=== PATIENT | male | born 1985 | race Caucasian/White ===

== ENCOUNTER 2020-03-20 13:19 | Emergency (ER) | payer OTHER ==
--- NOTE | 2020-03-20 13:57 | EDM.PDOC ---
ED HPI GENERAL MEDICAL PROBLEM - General Chief Complaint: Upper Extremity Injury/Pain Stated Complaint: RIGHT SHOULDER INJURY Time Seen by Provider: 03/20/20 13:20 Source of Information: Reports: Patient History Limitations: Reports: No Limitations - History of Present Illness INITIAL COMMENTS - FREE TEXT/NARRATIVE: Patient is a 35-year-old male who presents today for right shoulder pain. Patient states that he was practicing [email or web address] when his opponent him caused him to land on his right shoulder with his opponent weight on top of it as well. Patient states he has pain with range of motion of the right shoulder but can laterally lift the arm up with assistance. Patient was seen in urgent care last night and was told that they did not see any concerning findings at that time. Patient denied any other injuries fevers chills numbness to the arm or other complaints. right arm Pain Score (Numeric/FACES): 5 - Related Data Allergies Allergy/AdvReac Type Severity Reaction Status Date / Time No Known Allergies Allergy Verified 03/20/20 13:49 Home Meds: Home Meds . [No Known Home Meds] 03/20/20 [History] Review of Systems - Review of Systems Review Of Systems: See Below Constitutional: Reports: No Symptoms Eyes: Reports: No Symptoms Ears: Reports: No Symptoms Nose: Reports: No Symptoms Mouth/Throat: Reports: No Symptoms Respiratory: Reports: No Symptoms Cardiovascular: Reports: No Symptoms GI/Abdominal: Reports: No Symptoms Genitourinary: Reports: No Symptoms Musculoskeletal: Reports: Shoulder Pain Skin: Reports: No Symptoms Neurological: Reports: No Symptoms Psychiatric: Reports: No Symptoms ED EXAM, GENERAL - Physical Exam Exam: See Below Exam Limited By: No Limitations General Appearance: Alert, WD/WN Head: Atraumatic Peripheral Pulses: 2+: Radial (L), Radial (R) Extremities: Normal Inspection, Joint Swelling, Arm Pain. No: Normal Range of Motion Neurological: Alert, Oriented, Normal Cognition, Normal Gait Course - Vital Signs Last Recorded V/S: Last Vital Signs Temp 96.5 F L 03/20/20 13:45 Pulse 82 03/20/20 13:45 Resp 16 03/20/20 13:45 BP 170/86 H 03/20/20 13:45 Pulse Ox 97 03/20/20 13:45 - Orders/Labs/Meds Meds: Medications Discontinued Medications Generic Name Dose Route Start Last Admin Trade Name Arin PRN Reason Stop Dose Admin Ibuprofen 800 mg 03/20/20 14:00 03/20/20 14:06 Motrin PO 03/20/20 14:01 800 mg ONETIME ONE Administration - Re-Assessments/Exams Free Text/Narrative Re-Assessment/Exam: 03/20/20 15:07 Patient x-ray showed no fractures or dislocations. Patient of tendon area. Plan is to have a patient ice and take Motrin Tylenol for pain and have him follow-up orthopedics for possible further images this week. Departure - Departure Time of Disposition: 15:07 Disposition: Home, Self-Care 01 Condition: Good Clinical Impression: Sprain of shoulder and upper arm, Sprain of shoulder - Discharge Information *PRESCRIPTION DRUG MONITORING PROGRAM REVIEWED*: Not Applicable *COPY OF PRESCRIPTION DRUG MONITORING REPORT IN PATIENT BHAVANI: Not Applicable Instructions: Shoulder Sprain Referrals: PCP,Not In Area [Primary Care Provider] - Forms: ED Department Discharge Additional Instructions: The following information is given to patients seen in the emergency department who are being discharged to home. This information is to outline your options for follow-up care. We provide all patients seen in our emergency department with a follow-up referral. The need for follow-up, as well as the timing and circumstances, are variable depending upon the specifics of your emergency department visit. If you don't have a primary care physician on staff, we will provide you with a referral. We always advise you to contact your personal physician following an emergency department visit to inform them of the circumstance of the visit and for follow-up with them and/or the need for any referrals to a consulting specialist. The emergency department will also refer you to a specialist when appropriate. This referral assures that you have the opportunity for follow-up care with a specialist. All of these measure are taken in an effort to provide you with optimal care, which includes your follow-up. Under all circumstances we always encourage you to contact your private physician who remains a resource for coordinating your care. When calling for follow-up care, please make the office aware that this follow-up is from your recent emergency room visit. If for any reason you are refused follow-up, please contact the [facility] Emergency Department at and asked to speak to the emergency department charge nurse. Please follow up with your primary care physician. If you do not have a primary care physician, see below: [facility] [address], [address] [place] [address] Follow-up with orthopedic doctor we will send information to them and also the number above where you can call and also where the location of the appointment will be. If you have any numbness to the arm increased pain please return to the ER. Sepsis Event Note (ED) - Evaluation Sepsis Screening Result: No Definite Risk - Focused Exam Vital Signs: Vital Signs Temp Pulse Resp BP Pulse Ox 03/20/20 13:45 96.5 F L 82 16 170/86 H 97 - Assessment/Plan Assessment:: Patient is a 35-year-old male presents today for right shoulder pain. Patient landed on his right shoulder. Patient has limited range of motion and tenderness to touch. Will obtain x-ray pain control and reassess.
[2020-03-20] MEDS ORDERED: Ibuprofen 800 MG Tab PO ONE (14:00)
--- NOTE | 2020-03-20 14:46 | CR ---
Indication: Injury and pain Technique: Right shoulder 3 views Comparison: None Findings: Bones: Alignment is normal. No fractures or bone lesions. Joint spaces: Unremarkable. Soft tissues: Unremarkable. Impression: No sign of acute injury. Dictated by Dwain Park MD @ Mar 20 2020 2:42PM Signed by Dr. Dwain Park @ Mar 20 2020 2:45PM
--- NOTE | 2020-03-20 14:46 | CR ---
Indication: Injury and pain Technique: Right clavicle 2 views Comparison: None Findings: Bones: Alignment is normal. No fractures or bone lesions. Joint spaces: Unremarkable. Soft tissues: Unremarkable. Impression: No sign of acute injury. Dictated by Dwain Park MD @ Mar 20 2020 2:42PM Signed by Dr. Dwain Park @ Mar 20 2020 2:43PM
== END 2020-03-20 15:27 | disposition home or self-care (01) ==
LOC: MW.ED 13:19
DX: S43.401A Unspecified sprain of right shoulder joint, initial encounter (principal); W50.0XXA Accidental hit or strike by another person, initial encounter; Y92.89 Other specified places as the place of occurrence of the external cause
CPT/HCPCS: 73000; 73030; 99283; A9270